=== PATIENT | male | born 1985 | race Caucasian/White ===

== ENCOUNTER 2017-08-17 07:52 | Emergency (ER) | payer MEDICAID ==
--- NOTE | 2017-08-17 08:19 | EDPHY ---
H & P Time Seen by Provider: 08/17/17 08:14 HPI/ROS: CHIEF COMPLAINT: Right-sided abdominal pain HISTORY OF PRESENT ILLNESS: Patient awakened at 6:00 a.m. Today with some pain in his right abdominal area and a feeling of swelling in his testicle. At 7:00 a.m. It became severe and radiated to his left flank. Comes and goes and not positional associated with nausea. Feels like his breathing is"hard"with the pain. He does not on the left side. No fevers or chills. No associated dysuria or hematuria and no recent injury or trauma. REVIEW OF SYSTEMS: Eye: no change in vision ENT: no sore throat Cardiac: no chest pain or syncope Pulmonary: no cough or SOB Abdomen: HPI Musculoskeletal: HPI Skin: no rash Neuro: no headache Constitutional: no fever : no urinary symptoms A comprehensive 10 point review of systems is otherwise negative aside from elements mentioned in the history of present illness. PAST MEDICAL HISTORY: Right knee surgery 1 year ago Family history negative for renal colic Social history: Driven here by his roommate General Appearance: Alert and conversant, cooperative. Moderately uncomfortable. Eyes: No scleral icterus. ENT, Mouth: Normal mucous membranes. Respiratory: Normal respiratory effort, breath sounds equal, lungs are clear to auscultation. Cardiovascular: Regular rate and rhythm. Gastrointestinal: Abdomen is soft and non tender. No rebound or guarding, normal bowel sounds, no McBurney's point tenderness, normal male . Neurological: Alert, face symmetric, normal motor and sensory in extremities. Skin: Warm and dry, no rashes. Musculoskeletal: No peripheral edema. Psychiatric: Appears anxious. Emergency Department course/MDM: Toradol 30 mg IV after creatinine 1.1, Zofran 4 mg IV, CT abdomen pelvis to evaluate for renal colic discussed and consented. Patient offered fentanyl, declined. 916: Results discussed with the patient and his father, and he is re-examined. Fentanyl 100 mcg IV and Percocet 1 orally. 1012: Labs discussed including mandatory follow-up for elevated glucose. Referred to on-call PCP and [facility]. Feels better at this time. Wants discharge which I think is reasonable. Smoking Status: Current some day smoker Constitutional: Initial Vital Signs Temperature (C) 37.3 C 08/17/17 07:59 Heart Rate 53 L 08/17/17 07:59 Respiratory Rate 16 08/17/17 07:59 Blood Pressure 146/87 H 08/17/17 07:59 O2 Sat (%) 100 08/17/17 07:59 O2 Delivery Mode Room Air Allergies/Adverse Reactions: No Known Allergies Allergy (Unverified 08/17/17 08:03) Home Medications: Medication Instructions Recorded oxyCODONE/APAP 5/325 [Percocet] 1 tab PO Q4-6PRN PRN #11 tab 08/17/17 Medical Decision Making - Diagnostics Imaging Results: Imaging Impressions Abdomen/Pelvis CT 08/17/17 08:25 Impression: Mild hydronephrosis with 2.5 mm calcification in the expected location of the distal right ureter. Findings conveyed to Dr. Reid on 08/17/2017 at 9:15 AM. 912: Discussed with radiologist Daniel Gutiérrez, 2mm R renal colic at [facility]. Imaging: Discussed imaging studies w/ call or contact centre operator Radiologist Differential Diagnosis: Differential diagnosis considered for flank pain including but not limited to musculoskeletal causes, kidney stone, pyelonephritis, shingles, and intra- abdominal causes such as diverticulitis and appendicitis. - Data Points Laboratory Results: 08/17/17 08/17/17 09:45 08:28 POC Hgb 15.3 gm/dL gm/dL (13.7-17.5) POC Hct 45 % % (40-51) POC Sodium 140 mEq/L mEq/L (135-145) POC Potassium 3.6 mEq/L mEq/L (3.3-5.0) POC Chloride 101 mEq/L mEq/L (97-110) POC BUN 18 mg/dL mg/dL (7-23) POC Creatinine 1.1 mg/dL mg/dL (0.7-1.3) POC Glucose 177 mg/dL H mg/dL (70-100) Urine Color YELLOW Urine Appearance MODERATELY TURBID Urine pH 7.0 (5.0-7.5) Ur Specific [place] 1.026 (1.002-1.030) Urine Protein 2+ H (NEGATIVE) Urine Ketones 1+ H (NEGATIVE) Urine Blood 3+ H (NEGATIVE) Urine Nitrate NEGATIVE (NEGATIVE) Urine Bilirubin NEGATIVE (NEGATIVE) Urine Urobilinogen NEGATIVE EU EU (0.2-1.0) Ur Leukocyte Esterase NEGATIVE (NEGATIVE) Urine RBC 50-182 /hpf H /hpf (0-3) Urine WBC 0-1 /hpf /hpf (0-3) Ur Epithelial Cells NONE SEEN /lpf /lpf (NONE-1+) Urine Mucus 2+ /lpf H /lpf (NONE-1+) Urine Glucose 2+ H (NEGATIVE) Medications Given: Discontinued Medications Fentanyl (Sublimaze) 50 mcg IVP EDNOW ONE Stop: 08/17/17 08:43 Last Admin: 08/17/17 09:21 Dose: Not Given Fentanyl (Sublimaze) 100 mcg IVP EDNOW ONE Stop: 08/17/17 09:26 Last Admin: 08/17/17 09:30 Dose: 100 mcg Sodium Chloride (Ns) 1,000 mls @ 0 mls/hr IV EDNOW ONE; Wide Open PRN Reason: Protocol Stop: 08/17/17 08:26 Last Admin: 08/17/17 08:32 Dose: 1,000 mls Ketorolac Tromethamine (Toradol) 30 mg IVP EDNOW ONE Stop: 08/17/17 08:33 Last Admin: 08/17/17 08:33 Dose: 30 mg Ketorolac Tromethamine (Toradol) 30 mg IVP EDNOW ONE Stop: 08/17/17 08:33 Last Admin: 08/17/17 08:34 Dose: Not Given Ondansetron HCl (Zofran) 4 mg IVP EDNOW ONE Stop: 08/17/17 08:38 Last Admin: 08/17/17 08:39 Dose: 4 mg Oxycodone/Acetaminophen (Percocet 5/325) 1 tab PO EDNOW ONE Stop: 08/17/17 09:26 Last Admin: 08/17/17 09:30 Dose: 1 tab Point of Care Test Results: Chemistry 08/17/17 08:28 POC Sodium 140 mEq/L mEq/L (135-145) POC Potassium 3.6 mEq/L mEq/L (3.3-5.0) POC Chloride 101 mEq/L mEq/L (97-110) POC BUN 18 mg/dL mg/dL (7-23) POC Creatinine 1.1 mg/dL mg/dL (0.7-1.3) POC Glucose 177 mg/dL H mg/dL (70-100) ISTAT H&H 08/17/17 08:28 POC Hgb 15.3 gm/dL gm/dL (13.7-17.5) POC Hct 45 % % (40-51) Departure - Departure Disposition: Home, Routine, Self-Care Clinical Impression: Renal colic on right side, Blood glucose elevated Condition: Good Instructions: Oxycodone/Acetaminophen (By mouth), Renal Colic (ED) Additional Instructions: Ibuprofen 600 mg by mouth every 8 hr as needed for the next 3-4 days. Strain urine, bring any stone that you catch to Dr. Ralph's office in follow- up. You need to follow up with a primary care doctor in the next 2 weeks and given a referral Dr. Sevilla, but try [facility] first. your blood sugar today was 177 which is a little bit high. Referrals: Monroe Ralph MD [Medical Doctor] - 3-4 days, if not improved Esperanza Sevilla MD [Medical Doctor] - As per Instructions [facility],. [Clinic] - As per Instructions ([facility] primarycare clinic for Medicaid; try this first) Prescriptions: oxyCODONE/APAP 5/325 [Percocet] 1 tab PO Q4-6PRN PRN #11 tab PRN Reason: Pain
[2017-08-17] MEDS ORDERED: NS 1,000 ML IV ONE (08:25)
[2017-08-17] MEDS ORDERED: KETOROLAC 30 MG/1 ML SDV ONE (08:29)
[2017-08-17] MEDS ORDERED: KETOROLAC 30 MG/1 ML SDV IVP ONE ×2 (08:32)
[2017-08-17] MEDS ORDERED: ONDANSETRON 4 MG/2 ML VIAL IVP ONE (08:37)
[2017-08-17] MEDS ORDERED: fentaNYL 100 MCG/2 ML INJ IVP ONE ×2 (08:42→09:25)
[2017-08-17] MEDS ORDERED: OXYCODONE/APAP 5/325 TAB PO ONE (09:25)
[2017-08-17 10:54] VITALS: BP 118/62
== END 2017-08-17 10:54 | disposition home or self-care (01) ==
LOC: EDBD 07:52
DX: N23 Unspecified renal colic (principal); F17.200 Nicotine dependence, unspecified, uncomplicated; R73.9 Hyperglycemia, unspecified; E86.9 Volume depletion, unspecified
CPT/HCPCS: 82435-PO; 82565-PO; 82947-PO; 84132-PO; 84295-PO; 84520-PO; 85014-PO; 96374; J1885; J2405; J3010